=== PATIENT | male | born 1985 | race Caucasian/White ===

== ENCOUNTER 2021-04-16 16:16 | Inpatient (IN) | payer OTHER ==
[~2021-04-16] VITALS: Ht 177.8 cm; Wt 134.7 kg
[~2021-04-16 16:16] MED LIST: CLEOCIN HCL300 MG PO; IBUPROFEN 800800 M1 PO; NAPROSYN500 MG PO; NOHOMEMEDICATIONS; NORCO 5-325 TA1 EACH PO
[2021-04-16 16:17] VITALS: BP 130/88
[2021-04-16 16:43] LABS: BE(vivo) -0.5 mmol/L (-2 to +3); HCO3 21.9 mmol/L (22.0-26.0); PCO2 30.8 mmHg (35.0-45.0); PO2 78.4 mmHg (80.0-100.0); sO2 96.4 % (92.0-98.0)
[2021-04-16 17:00] LABS: ABSOLUTE NEUTROPHILS 3.4 thou/uL (1.4-8.2); BASOPHILS 0.3 % (0.0-2.0); HEMATOCRIT 45.7 % (42.0-52.0); HEMOGLOBIN 15.7 gm/dL (14.0-18.0); LYMPHOCYTES 21.1 % (24.0-44.0); MCH 29.9 pg (26.0-34.0); MCHC 34.3 g/dL (28.0-37.0); MCV 87.3 fL (80.0-100.0); MONOCYTES 8.3 % (1.0-8.0); PLATELET COUNT 169 thou/uL (150-400); POLYS 70.3 % (36.0-66.0); RBC 5.23 mil/uL (4.50-6.00); RDW 12.5 % (10.5-14.5); WBC 4.9 thou/uL (4.0-11.0)
[2021-04-16 17:10] LABS: CALCIUM 8.4 mg/dL (8.5-10.1); CREATININE 1.3 mg/dL (0.7-1.3); POTASSIUM 3.2 mmol/L (3.5-5.1)
[2021-04-16 17:16] LABS: ALBUMIN 3.1 g/dL (3.4-5.0); TOTAL BILIRUBIN 0.4 mg/dL (0.2-1.0); TOTAL PROTEIN 7.5 g/dL (6.4-8.2)
[2021-04-17 02:55] LABS: HEMOGLOBIN 14.7 gm/dL (14.0-18.0); MCH 29.9 pg (26.0-34.0); MCHC 33.4 g/dL (28.0-37.0); MCV 89.4 fL (80.0-100.0); RBC 4.92 mil/uL (4.50-6.00); RDW 12.5 % (10.5-14.5); WBC 4.3 thou/uL (4.0-11.0)
[2021-04-17 03:50] LABS: ALBUMIN 2.7 g/dL (3.4-5.0); ANION GAP 14 mmol/L (7-16); BUN 14 mg/dL (7-18); CALCIUM 8.1 mg/dL (8.5-10.1); CHLORIDE 97 mmol/L (98-107); CO2 23 mmol/L (21-32); CREATININE 1.5 mg/dL (0.7-1.3); DIRECT BILIRUBIN < 0.1 mg/dL (<0.1-0.2); GLUCOSE 412 mg/dL (74-106); PHOSPHORUS 3.4 mg/dL (2.5-4.9); POTASSIUM 4.1 mmol/L (3.5-5.1); SGOT 21 U/L (15-37); SGPT 38 U/L (30-65); SODIUM 134 mmol/L (136-145); TOTAL BILIRUBIN 0.3 mg/dL (0.2-1.0)
[2021-04-17 12:52] VITALS: BP 129/74
[2021-04-17 17:03] VITALS: BP 143/93
[2021-04-17 17:31] VITALS: BP 155/93
[2021-04-17 18:05] VITALS: BP 132/78
[2021-04-17 19:25] LABS: CHOLESTEROL 155 mg/dL (<200); HDL CHOLESTEROL 25 mg/dL (>40); LDL CHOLESTEROL 105 mg/dL (<100); SERUM ASSESSMENT Clear; TC:HDL 6.2 Ratio (Not establshd); TRIGLYCERIDE 129 mg/dL (<150); VLDL 26 mg/dL (<40)
[2021-04-17 19:45] VITALS: BP 152/93
[2021-04-17 23:21] VITALS: BP 132/76
[2021-04-18 03:06] LABS: GLYCOHEMOGLOBIN (HGB A1C) 11.4 % (4.8-5.6)
[2021-04-18 04:04] VITALS: BP 133/89
[2021-04-18 06:31] LABS: ABSOLUTE NEUTROPHILS 5.3 thou/uL (1.4-8.2); BASOPHILS 0.1 % (0.0-2.0); HEMATOCRIT 45.8 % (42.0-52.0); HEMOGLOBIN 15.2 gm/dL (14.0-18.0); LYMPHOCYTES 12.8 % (24.0-44.0); MCH 29.5 pg (26.0-34.0); MCHC 33.3 g/dL (28.0-37.0); MCV 88.7 fL (80.0-100.0); MONOCYTES 7.2 % (1.0-8.0); PLATELET COUNT 237 thou/uL (150-400); POLYS 79.9 % (36.0-66.0); RBC 5.16 mil/uL (4.50-6.00); RDW 12.4 % (10.5-14.5); WBC 6.6 thou/uL (4.0-11.0)
[2021-04-18 06:36] LABS: ALBUMIN 2.8 g/dL (3.4-5.0); ANION GAP 8 mmol/L (7-16); BUN 20 mg/dL (7-18); CALCIUM 8.7 mg/dL (8.5-10.1); CHLORIDE 99 mmol/L (98-107); CO2 28 mmol/L (21-32); CREATININE 1.2 mg/dL (0.7-1.3); DIRECT BILIRUBIN < 0.1 mg/dL (<0.1-0.2); GLUCOSE 261 mg/dL (74-106); INR 1.03; PHOSPHORUS 3.4 mg/dL (2.5-4.9); POTASSIUM 3.9 mmol/L (3.5-5.1); PROTIME 11.2 Seconds (10.5-12.1); SGOT 15 U/L (15-37); SGPT 31 U/L (30-65); SODIUM 135 mmol/L (136-145); TOTAL BILIRUBIN 0.3 mg/dL (0.2-1.0); TOTAL PROTEIN 7.2 g/dL (6.4-8.2)
--- NOTE | 2021-04-18 07:04 | NUR ---
Patient working towards outcome goals. Needs 10L hi brii to maintain oxygen sat mid 90's. Desats to mid to upper 90's with any activity. Up adlib to bathroom without difficulty. Blood sugars high, sliding scale increased to moderate dose. Denies pain. Vital signs stable.
[2021-04-18 07:28] VITALS: BP 129/70
--- NOTE | 2021-04-18 10:10 | NUR ---
Pt admitted d/t increasing SOA, sputum production following positive covid test last week. New dx DM noted with BS range 276-347 since admit. 90% dinner intake last noc. Extreme class III obesity with BMI 45.2. Unable to get pt on phone. Will need DM education when medically stable, prior to d/c. Low nutrition risk at this time.
[2021-04-18 11:35] VITALS: BP 134/72
--- NOTE | 2021-04-18 14:42 | NUR ---
PT ADMITTED RELATED TO ACUTE RESPIRATORY FAILURE R/T COVID-19. CM REVIEWED CHART AND SPOKE WITH CARE TEAM. CM SPOKE TO PT AND PTS VIA PHONE THIS DAY. CM ROLE INTRODUCED. PT REPORTS HE WAS RECEIVING A BREATHING TREATMENT AT THE TIME OF MY CALL AND ASK ME TO CALL HIS . REPORTS PT RESIDE AT HOME WITH SPOUSE AND 1 CHILD. 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 GOAL IS TO RETURN HOME ONCE MEDICALLY STABLE. NO CONCERNS WITH NEEDS VOICED ONCE DISCHARGE AT THIS TIME. UNSURE IF PT WILL NEED OXYGEN ON DISCHARGE. WILL FOLLOW THROUGH STAY AND ARRANGE IF INDICATED. CM FOLLOWING REGARDING DC PLANNING.
[2021-04-18 16:39] VITALS: BP 128/73
[2021-04-18 19:13] VITALS: BP 127/66
--- NOTE | 2021-04-18 19:34 | NUR ---
RN ASSUMED PT'S CARE AT 0700-1900PM, PT IS A&OX4, PT IS ON OPTIFLOW O2 60-70%, 30-40L/MIN , PT'S O2SAT SATY AT 92-94%, BUT PT HAS SOB WITH ACTIVITIES, PT IS CONTINUING IV ABX AND TREAT COVID MEDICATIONS, PT DENIES PAIN AT DAY SHIFT.
--- NOTE | 2021-04-18 23:17 | HC ---
[facility] [place] [address] CONSULTATION Name: CURT HANSEN Room #: 352-P [facility] IN M.R.#: [id number] Admission: 04/16/21 Attend Phys: Ena Gutierres MD Discharge: Date of : 85 Report #: [id number] THIS REPORT FOR: cc: Jean Anne MD ~ DATE OF SERVICE: 04/17/2021 INFECTIOUS DISEASE CONSULTATION REASON FOR CONSULTATION: I was asked to evaluate concerning COVID-19 pneumonia. HISTORY OF PRESENT ILLNESS: The patient is a 35-year-old otherwise healthy individual who is obese, unvaccinated for COVID-19, presents with 6-day history of cough, low-grade fever, progressive shortness of breath, intermittent sputum production without hemoptysis or chest pain. COVID-19 testing was positive 6 days ago. Progressive shortness of breath occurred over the last 3 days. He presented to the Emergency Room, now on 10 liters of oxygen per nasal cannula. No prior history of pneumonia or tuberculosis or HIV risk factors. He works as a cert pharmacy tech. Denies any headache, anosmia, nausea, vomiting or diarrhea. His weight has been approximately 340 pounds. ALLERGIES: AUGMENTIN WITH GI UPSET. SULFA. MEDICATIONS: As noted on his MAR, having been started on dexamethasone, remdesivir, azithromycin and ceftriaxone. FAMILY HISTORY: Negative for tuberculosis. SOCIAL HISTORY: Nonsmoker, no significant alcohol intake. No HIV risk factors. PAST MEDICAL HISTORY: Premature at , jaw surgery. REVIEW OF SYSTEMS: A 14-point review of system was negative other than what has been described above. PHYSICAL EXAMINATION: GENERAL: He is afebrile and hemodynamically stable. He is alert and cooperative and pleasant, on 10 liters of oxygen per nasal cannula. He had intermittent nonproductive cough. Morbidly obese. SKIN: Without rash or decubitus. No palpable adenopathy. EYES: Without scleral icterus. Mouth without mucositis. NECK: Supple. LUNGS: Few crackles in the bases bilaterally. No consolidation. HEART: Regular, without murmur, gallop or rub. ABDOMEN: Soft and nontender with no hepatosplenomegaly or mass. [facility] [address] [place] [address] CONSULTATION Name: CURT HANSEN Room #: 352-P ADM IN .R.#: [id number] Admission: 04/16/21 Attend Phys: Ena Gutierres MD Discharge: Date of : 85 Report #: [id number] GENITORECTAL: Not performed. SPINE: Nontender. EXTREMITIES: Without clubbing, cyanosis or edema. NEUROLOGIC: Cranial nerves intact. Strength in the upper and lower extremities was within normal limits. MOOD: Without anxiety or depression. LABORATORY STUDIES: Reviewed. MICROBIOLOGY: Reviewed. IMAGING: Chest x-ray reviewed. IMPRESSION: A 35-year-old with COVID-19 pneumonia, bilateral pulmonary infiltrates, SARS and respiratory failure. Acute kidney injury, newly diagnosed diabetes, hyponatremia and obesity. RECOMMENDATION: Continue antiviral anti-inflammatory therapy. Discussed use of IL-6 inhibitor or possibly Janus kinase inhibitor. The patient was in agreement with plan of care. We will continue with fluid replacement. Monitor renal function closely. The patient will remain on the [facility] isolation unit for cardiopulmonary monitoring. Pulmonary Medicine consultation has been obtained to assist with his oxygenation. <ELECTRONICALLY SIGNED> By: Jean Anne MD 04/18/21 2317 [id number] Jean Anne MD /nt
[2021-04-19 02:06] LABS: HIV ANTIBODY Non Reactive (Non Reactive)
[2021-04-19 03:27] VITALS: BP 122/73
--- NOTE | 2021-04-19 06:27 | NUR ---
Patient is not progressing towards outcome goals. SOB with any activity. Oxygen requirement increased to 44L/86% pr optiflow to maintain sats between 92-96%. Attempted but patient unable to tolerate prone position. Vital signs and rhythm stable.
[2021-04-19 06:55] LABS: ALBUMIN 2.8 g/dL (3.4-5.0); CALCIUM 8.6 mg/dL (8.5-10.1); CREATININE 1.2 mg/dL (0.7-1.3); DIRECT BILIRUBIN 0.1 mg/dL (<0.1-0.2); POTASSIUM 3.6 mmol/L (3.5-5.1); TOTAL BILIRUBIN 0.3 mg/dL (0.2-1.0); TOTAL PROTEIN 6.9 g/dL (6.4-8.2)
[2021-04-19 07:27] VITALS: BP 120/77
[2021-04-19 11:12] VITALS: BP 117/59
--- NOTE | 2021-04-19 11:56 | NUR ---
Case discussed with the care team. No weekend dc anticipated. Pt with increasing o2 needs/optiflow/bipap. Dc planning needs are uncertain at this time. Nursing updating his . Will follow.
[2021-04-19 15:25] VITALS: BP 126/59
--- NOTE | 2021-04-19 19:32 | NUR ---
RN ASSUMED PT'S CARE AT 0700-1900PM, PT IS A&OX4, PT IS ON OPTIFLOW O2 70-80%, 30-40L/MIN/NC AT MOST OF TIME, PT'S O2SAT STAY AT 92-96%, PT STILL HAS SOB WITH ACTIVITIES, PT IS CONTINUING IV ABX AND TREAT COVID MEDICATIONS, PT DENIES PAIN AT DAY SHIFT.
[2021-04-19 20:56] VITALS: BP 143/90
[2021-04-20 04:03] VITALS: BP 123/75
[2021-04-20 05:06] LABS: ABSOLUTE NEUTROPHILS 6.5 thou/uL (1.4-8.2); BASOPHILS 0.2 % (0.0-2.0); HEMATOCRIT 43.9 % (42.0-52.0); HEMOGLOBIN 14.6 gm/dL (14.0-18.0); LYMPHOCYTES 15.2 % (24.0-44.0); MCH 29.4 pg (26.0-34.0); MCHC 33.3 g/dL (28.0-37.0); MCV 88.5 fL (80.0-100.0); MONOCYTES 6.8 % (1.0-8.0); POLYS 77.8 % (36.0-66.0); RBC 4.96 mil/uL (4.50-6.00); RDW 12.6 % (10.5-14.5); WBC 8.4 thou/uL (4.0-11.0)
[2021-04-20 05:09] LABS: PLATELET COUNT 321 thou/uL (150-400)
[2021-04-20 05:15] LABS: ALBUMIN 2.8 g/dL (3.4-5.0); ANION GAP 11 mmol/L (7-16); BUN 25 mg/dL (7-18); CALCIUM 8.6 mg/dL (8.5-10.1); CHLORIDE 99 mmol/L (98-107); CO2 28 mmol/L (21-32); CREATININE 1.2 mg/dL (0.7-1.3); DIRECT BILIRUBIN < 0.1 mg/dL (<0.1-0.2); GLUCOSE 239 mg/dL (74-106); PHOSPHORUS 3.9 mg/dL (2.6-4.7); POTASSIUM 3.3 mmol/L (3.5-5.1); SGOT 17 U/L (15-37); SGPT 35 U/L (16-63); SODIUM 138 mmol/L (136-145); TOTAL BILIRUBIN 0.3 mg/dL (0.2-1.0); TOTAL PROTEIN 6.7 g/dL (6.4-8.2)
--- NOTE | 2021-04-20 05:44 | NUR ---
PT IS SLOWLY PROGRESSING TOWARD GOAL OF DISCHARGE HOME. PT IS A&OX4 AND ABLE TO COMMUNICATE WANTS AND NEEDS TO STAFF. PT INDEPENDENT WITH TRANSFERS, CURRENTLY UTILIZING BSC AND URINAL FOR ELIMINATION NEEDS. PT IS STILL REQUIRING SIGNIFICANT OXYGEN SUPPORT. STARTED SHIFT ON OPTIFLOW 50L/75%, WITH O2 SATS RANGING FROM 93-97%. SWITCHED TO BIPAP 60% AT HS, MAINTAINED O2 SAT 93-95%. TITRATED DOWN TO 50%; PT DESATURATED TO 83-86%. INCREASED FIO2 BACK TO 70% AND PT RECOVERED TO 94-96% AND WAS ABLE TO TITRATE BACK TO 60%. HAS BEEN STABLE WITH O2 SATS 93-96% WHILE ON BIPAP 60%. DENIES PAIN, DOES HAVE PERSISTENT NONPRODUCTIVE COUGH. WILL CONTINUE TO OBSERVE FOR CHANGES
[2021-04-20 07:11] VITALS: BP 110/62
[2021-04-20 11:20] VITALS: BP 122/63
[2021-04-20 15:16] VITALS: BP 124/62
--- NOTE | 2021-04-20 16:15 | NUR ---
RN ASSUMED PT'S CARE AT 0700AM, PT IS A&OX4, PT IS ON OPTIFLOW O2 70-75%, 45-50L/MIN, PT'S O2SAT STAY AT 91-95%, PT STILL HAS SOB WITH ACTIVITIES, PT IS CONTINUING IV ABX AND TREAT COVID MEDICATIONS, PT DENIES PAIN BY THIS TIME, PT'S VS ARE STABLE BY THIS TIME.
[2021-04-20 19:45] VITALS: BP 138/63
[2021-04-21 04:20] VITALS: BP 119/62
--- NOTE | 2021-04-21 04:24 | NUR ---
PT IS A&OX4 AND ABLE TO COMMUNICATE ALL WANTS AND NEEDS TO STAFF. PT STABLE ON OPTIFLOW 50L/75% WITH O2 SATS >94%. BIPAP WORN AT HS. PT INITIALLY ON 60% BIPAP, BUT HE FELL INTO A DEEPER SLEEP, DESATURATED TO 85-87%. FIO2 TITRATED UP TO 80%, RT AWARE. CURRENTLY MAINTAINING O2 SAT 90-94% ON 80%/BIPAP. DESATURATES QUICKLY WITH EXERTION, EATING, OR DRINKING. WILL CONTINUE TO OBSERVE FOR CHANGES
[2021-04-21 05:34] LABS: ALBUMIN 2.7 g/dL (3.4-5.0); ANION GAP 8 mmol/L (7-16); BUN 27 mg/dL (7-18); CALCIUM 8.7 mg/dL (8.5-10.1); CHLORIDE 100 mmol/L (98-107); CO2 31 mmol/L (21-32); CREATININE 1.3 mg/dL (0.7-1.3); DIRECT BILIRUBIN < 0.1 mg/dL (<0.1-0.2); GLUCOSE 202 mg/dL (74-106); PHOSPHORUS 4.2 mg/dL (2.5-4.9); POTASSIUM 3.7 mmol/L (3.5-5.1); SGOT 21 U/L (15-37); SGPT 37 U/L (30-65); SODIUM 139 mmol/L (136-145); TOTAL BILIRUBIN 0.3 mg/dL (0.2-1.0); TOTAL PROTEIN 6.4 g/dL (6.4-8.2)
[2021-04-21 08:08] VITALS: BP 127/58
[2021-04-21 11:07] VITALS: BP 125/69
[2021-04-21 15:03] VITALS: BP 142/69
--- NOTE | 2021-04-21 15:22 | NUR ---
RN ASSUMED PT'S CARE AT 0700AM, PT IS A&OX4 PT IS ON OPFTIFLOW 02 90-100%, 60L/MIN/ , PT'S O2SAT STAY AT 92-96%, BUT PT STILL HAS SOB WITH ACTIVIEDC,PT'S VS ARE STABLE, PT IS CONTINUING IV ABX AND TREAT COVID [id number]. PT DENIES PAIN AT THIS TIME.
[2021-04-21 20:14] VITALS: BP 114/59
[2021-04-22] VITALS (12 sets, daily range): BP systolic 102–138; BP diastolic 33–74
[2021-04-22 02:41] LABS: BE(vivo) 2.3 mmol/L (-2 to +3); HCO3 24.6 mmol/L (22.0-26.0); PCO2 32.4 mmHg (35.0-45.0); pH 7.499 (7.360-7.450); sO2 89.1 % (92.0-98.0)
[2021-04-22 02:46] LABS: PO2 50.4 mmHg (80.0-100.0)
[2021-04-22 04:52] LABS: ALBUMIN 2.9 g/dL (3.4-5.0); CREATININE 1.1 mg/dL (0.7-1.3); POTASSIUM 3.3 mmol/L (3.5-5.1); TOTAL BILIRUBIN 0.4 mg/dL (0.2-1.0); TOTAL PROTEIN 6.6 g/dL (6.4-8.2)
--- NOTE | 2021-04-22 05:08 | NUR ---
ASSUMED PT CARE AT 1900 AND PT WAS ON OPTIFLOW 60L 100% FIO2. PT O2 NEEDS INCREASED, RT WAS NOTIFIED AND PT WAS PUT ON BIPAP 100% FIO2. NOTIFIED MECHANICAL ADJUSTER AND OF INCREASED O2 NEEDS. STAT ABG WAS ORDERED AND RECEIVED CRITICAL LAB PO2-50.4. NOTIFIED AND RECEIVED ORDERS TO TRANSFER PT TO ICU. PT WAS TRANSFERED WITH ALL HIS BELONGINGS. NOTIFIED AND UPDATED FAMILY.
[2021-04-22 05:18] LABS: ABSOLUTE NEUTROPHILS 9.4 thou/uL (1.4-8.2); BASOPHILS 0.1 % (0.0-2.0); EOSINOPHILS 0.8 % (0.0-3.0); HEMATOCRIT 46.6 % (42.0-52.0); HEMOGLOBIN 15.4 gm/dL (14.0-18.0); LYMPHOCYTES 15.4 % (24.0-44.0); MCH 29.5 pg (26.0-34.0); MCHC 33.1 g/dL (28.0-37.0); MONOCYTES 4.5 % (1.0-8.0); PLATELET COUNT 378 thou/uL (150-400); POLYS 79.2 % (36.0-66.0); RBC 5.24 mil/uL (4.50-6.00); RDW 12.4 % (10.5-14.5); WBC 11.9 thou/uL (4.0-11.0)
--- NOTE | 2021-04-22 14:39 | NUR ---
RN ASKED PT IF HE WANTED TO BE INTUBATED IF IT CAME TO THAT POINT. PT SAID HE WOULD "PREFER NOT TO BE BUT IF I HAVE TO BE I GUESS THATS FINE". PT HAS BEEN SATTING 95-98%. PT BP WAS ELEVATED, 190S/110S. RN CHANGED BP CUFF, AND BP RETURNED TO WHAT IT WAS AT START OF SHIFT. RN NOTIFIED DR MARTÍNEZ ABOUT ELEVATED BP. PUT IN AN ORDER TO START PRECEDEX. SINCE PT BLOOD PRESSURE IS BACK TO A NORMAL LEVEL, RN DID NOT START PRECEDEX. RN WILL CONTINUE TO MONITOR AND FOLLOW POC.
--- NOTE | 2021-04-22 16:21 | NUR ---
Pt was transfered from . Pt now on BiPaP at 100%. Pt on IV Ceftriaxone, Valtrex, Dexamethasone, Remdesivir day 7. Cm following.
[2021-04-23] VITALS (24 sets, daily range): BP systolic 84–148; BP diastolic 42–104
[2021-04-23 05:16] LABS: ALBUMIN 2.8 g/dL (3.4-5.0); CALCIUM 8.5 mg/dL (8.5-10.1); CREATININE 1.1 mg/dL (0.7-1.3); TOTAL BILIRUBIN 0.4 mg/dL (0.2-1.0); TOTAL PROTEIN 6.2 g/dL (6.4-8.2)
[2021-04-23 05:22] LABS: HEMATOCRIT 46.9 % (42.0-52.0); HEMOGLOBIN 15.6 gm/dL (14.0-18.0); MCH 29.5 pg (26.0-34.0); MCHC 33.3 g/dL (28.0-37.0); MCV 88.7 fL (80.0-100.0); PLATELET COUNT 343 thou/uL (150-400); RBC 5.29 mil/uL (4.50-6.00); RDW 12.6 % (10.5-14.5); WBC 10.9 thou/uL (4.0-11.0)
[2021-04-23 08:19] LABS: T-SPOT.TB Negative
[2021-04-23 11:43] LABS: ABSOLUTE NEUTROPHILS 9.2 thou/uL (1.4-8.2); METAMYELOCYTES 1 %; PLATELET ESTIMATE NORMAL
[2021-04-24] VITALS (20 sets, daily range): BP systolic 105–164; BP diastolic 49–95
--- NOTE | 2021-04-24 05:43 | NUR ---
ASSESSMENTS CHARTED, MEDS CHARTED GIVEN. PATIENT IN PRONE POSITION AT START OF SHIFT. ATE DINNER THAN CONTINUED PRONE POSITION UNTIL 2229. PATIENT ABLE TO TURN HIMSELF IN THE BED. PATIENT ON OPTIFLO UNTIL BEDTIME WHEN HE WAS PLACED ON BIPAP. PATIENT'S IS ASKING THAT SERVICE ESTABLISHMENT ATTENDANT CALL HER DURING THE DAY FOR AN UPDATE OF HUSBANDS CONDITION. PLAN OF CARE TO CONTINUE TREATMENTS.
[2021-04-24 09:48] LABS: CALCIUM 8.5 mg/dL (8.5-10.1); CREATININE 1.2 mg/dL (0.7-1.3); DIRECT BILIRUBIN 0.1 mg/dL (<0.1-0.2); PHOSPHORUS 4.6 mg/dL (2.6-4.7); POTASSIUM 3.3 mmol/L (3.5-5.1); TOTAL BILIRUBIN 0.5 mg/dL (0.2-1.0)
[2021-04-24 09:49] LABS: ALBUMIN 2.8 g/dL (3.4-5.0); TOTAL PROTEIN 6.2 g/dL (6.4-8.2)
--- NOTE | 2021-04-24 16:53 | NUR ---
Cm reviewed chart and spoke with care team. Pt's care discussed in ICU rounds this day. Pt is Currently on HFNC 75%, 50LPM vs BIPAP 12/8, FIO2 100%. Pt and Ot were ordered. Cm following.
[2021-04-25] VITALS (21 sets, daily range): BP systolic 95–135; BP diastolic 36–87
[2021-04-25 04:03] LABS: ALBUMIN 2.7 g/dL (3.4-5.0); ANION GAP 8 mmol/L (7-16); BUN 24 mg/dL (7-18); CALCIUM 8.4 mg/dL (8.5-10.1); CHLORIDE 101 mmol/L (98-107); CO2 26 mmol/L (21-32); CREATININE 1.1 mg/dL (0.7-1.3); DIRECT BILIRUBIN < 0.1 mg/dL (<0.1-0.2); GLUCOSE 185 mg/dL (74-106); SGOT 23 U/L (15-37); SGPT 82 U/L (30-65); SODIUM 135 mmol/L (136-145); TOTAL BILIRUBIN 0.3 mg/dL (0.2-1.0); TOTAL PROTEIN 5.7 g/dL (6.4-8.2)
--- NOTE | 2021-04-25 09:27 | NUR ---
Nutrition followup: Acute respiratory failure with transfer to ICU, need for BIPAP. Now on Optiflow. Has been eating 60-100% of meals past several days on Carb controlled diet. Newly dx DM. A1C 11.4. BG 109-319. Meds include lasix, vitamin pack, KCl, insulin, steroid. 1+ generalized edema. BMI 45, extreme class 3 obesity. Last BM documented 04/20. Has PRN miralax ordered, may need to change to daily. Will need DM/weight loss education when appropriate. Keep low nutrition risk.
--- NOTE | 2021-04-25 16:42 | NUR ---
CM REVIEWED CHART AND SPOKE WITH NURSE THIS DAY. PT IS OPTIFLOW AT THIS TIME. PT WORKED WITH PT AND OT THIS DAY. CM FOLLOWING.
[2021-04-26] VITALS (21 sets, daily range): BP systolic 110–138; BP diastolic 42–90
[2021-04-26 04:09] LABS: ABSOLUTE NEUTROPHILS 8.9 thou/uL (1.4-8.2); BASOPHILS 0.5 % (0.0-2.0); EOSINOPHILS 1.5 % (0.0-3.0); HEMATOCRIT 44.7 % (42.0-52.0); LYMPHOCYTES 12.4 % (24.0-44.0); MCH 29.7 pg (26.0-34.0); MCHC 33.5 g/dL (28.0-37.0); MCV 88.6 fL (80.0-100.0); MONOCYTES 6.8 % (1.0-8.0); PLATELET COUNT 280 thou/uL (150-400); POLYS 78.8 % (36.0-66.0); RBC 5.05 mil/uL (4.50-6.00); RDW 12.5 % (10.5-14.5); WBC 11.3 thou/uL (4.0-11.0)
[2021-04-26 04:16] LABS: ALBUMIN 2.7 g/dL (3.4-5.0); ANION GAP 10 mmol/L (7-16); BUN 24 mg/dL (7-18); CALCIUM 8.6 mg/dL (8.5-10.1); CHLORIDE 103 mmol/L (98-107); CO2 24 mmol/L (21-32); CREATININE 0.9 mg/dL (0.7-1.3); DIRECT BILIRUBIN < 0.1 mg/dL (<0.1-0.2); GLUCOSE 203 mg/dL (74-106); PHOSPHORUS 3.9 mg/dL (2.5-4.9); POTASSIUM 4.4 mmol/L (3.5-5.1); SGOT 20 U/L (15-37); SGPT 69 U/L (30-65); SODIUM 137 mmol/L (136-145); TOTAL BILIRUBIN 0.2 mg/dL (0.2-1.0); TOTAL PROTEIN 5.5 g/dL (6.4-8.2)
--- NOTE | 2021-04-26 10:07 | NUR ---
VERBAL ORDER FROM DR. MARTÍNEZ TO PLACE DOBHOFF AND INITATE TF PER PAPETERIE TABLE ASSEMBLER RECOMMENDATIONS. PT UPDATED ON POC.
--- NOTE | 2021-04-26 11:10 | NUR ---
PT ALERT AND ORIENTED TIMES FOUR. VSS. 40% OPTIFLOW AT THIS TIME. PT DENIES PAIN. PT TOLERATES MEDS AND MEALS. PT WORKED WELL WITH PHYSICAL THEARPY TODAY. WILL CONTINUE TO MONITOR.
--- NOTE | 2021-04-26 14:47 | NUR ---
Case discussed with the care team. No weekend dc anticipated. Pt is progressing. Pt now on high flow 02 at 50%/45L. Pt working with PT and OT. Nursing updating his . Will follow related to dc needs.
[2021-04-27] VITALS (24 sets, daily range): BP systolic 104–160; BP diastolic 63–107
[2021-04-27 04:07] LABS: HEMATOCRIT 45.8 % (42.0-52.0); HEMOGLOBIN 15.3 gm/dL (14.0-18.0); MCH 29.8 pg (26.0-34.0); MCHC 33.4 g/dL (28.0-37.0); MCV 89.1 fL (80.0-100.0); PLATELET COUNT 277 thou/uL (150-400); RBC 5.14 mil/uL (4.50-6.00); RDW 12.7 % (10.5-14.5); WBC 15.1 thou/uL (4.0-11.0)
[2021-04-27 04:14] LABS: ALBUMIN 2.9 g/dL (3.4-5.0); ANION GAP 8 mmol/L (7-16); BUN 23 mg/dL (7-18); CALCIUM 8.8 mg/dL (8.5-10.1); CHLORIDE 103 mmol/L (98-107); CO2 28 mmol/L (21-32); CREATININE 1.1 mg/dL (0.7-1.3); DIRECT BILIRUBIN < 0.1 mg/dL (<0.1-0.2); GLUCOSE 163 mg/dL (74-106); PHOSPHORUS 4.2 mg/dL (2.6-4.7); POTASSIUM 4.3 mmol/L (3.5-5.1); SGOT 19 U/L (15-37); SGPT 82 U/L (16-63); SODIUM 139 mmol/L (136-145); TOTAL BILIRUBIN 0.2 mg/dL (0.2-1.0); TOTAL PROTEIN 6.2 g/dL (6.4-8.2)
[2021-04-27 06:39] LABS: ABSOLUTE NEUTROPHILS 12.5 thou/uL (1.4-8.2); ATYPICAL LYMPHS 2 %
--- NOTE | 2021-04-27 13:19 | NUR ---
PT RESTING COMFORTABLY, HE IS ABLE TO SIT IN BEDSIDE RECLINER WITH MODERATE ASSISTANCE WITH LINES AND TUBES. PT HAD A VERY LARGE BM THIS AFTERNOON AFTER BEING GIVEN A STOOL SOFTNER. PT STILL BECOMES SOA WHEN DOING BASIC DAILY ACTIVITES HOWEVER, RECOVERS QUICKLY. WILL CONTINUE TO FOLLOW POC.
[2021-04-28] VITALS (21 sets, daily range): BP systolic 102–135; BP diastolic 59–85
[2021-04-28 05:21] LABS: ALBUMIN 2.9 g/dL (3.4-5.0); ANION GAP 8 mmol/L (7-16); BUN 25 mg/dL (7-18); CALCIUM 8.8 mg/dL (8.5-10.1); CHLORIDE 101 mmol/L (98-107); CO2 29 mmol/L (21-32); CREATININE 1.1 mg/dL (0.7-1.3); DIRECT BILIRUBIN < 0.1 mg/dL (<0.1-0.2); GLUCOSE 66 mg/dL (74-106); POTASSIUM 3.6 mmol/L (3.5-5.1); SGOT 22 U/L (15-37); SGPT 83 U/L (30-65); SODIUM 138 mmol/L (136-145); TOTAL BILIRUBIN 0.3 mg/dL (0.2-1.0); TOTAL PROTEIN 6.3 g/dL (6.4-8.2)
--- NOTE | 2021-04-28 22:26 | NUR ---
TRANSFER ORDER FOR PATIENT WAS PLACED ON DAY SHIFT. REPORT WAS CALLED TO [place] ON 3W. NURSE AND RT TRANSPORTED PATIENT VIA WHEELCHAIR TO 3W. PATIENT WAS IN NO ACUTE DISTRESS. ALL BELONGINGS TAKEN WITH PATIENT.
[2021-04-29 04:00] VITALS: BP 123/79
--- NOTE | 2021-04-29 05:56 | NUR ---
PT WAS AN ICU TRANSFER PREVIOUSLY ON 3W. PT WAS TAKEN OFF OPTIFLOW AFTER ARRIVAL. 02 SATURATION IS 98% ON 12L. A/0X4 AND VERY HAPPY TO BE BACK ON 3W. UP WITH SBA TO BSC AND VOIDS EITHER VIA URINAL OR BSC. VSS AND CALL LIGHT WITHIN REACH.
[2021-04-29 06:08] LABS: HEMATOCRIT 47.7 % (42.0-52.0); HEMOGLOBIN 15.6 gm/dL (14.0-18.0); MCH 29.7 pg (26.0-34.0); MCHC 32.7 g/dL (28.0-37.0); MCV 90.6 fL (80.0-100.0); RBC 5.26 mil/uL (4.50-6.00); RDW 12.7 % (10.5-14.5); WBC 15.9 thou/uL (4.0-11.0)
[2021-04-29 07:32] VITALS: BP 106/61
[2021-04-29 09:16] LABS: BE(vivo) 0 mmol/L (-2 to +3); HCO3 23.6 mmol/L (22.0-26.0); PCO2 35.9 mmHg (35.0-45.0); PO2 69.6 mmHg (80.0-100.0); pH 7.436 (7.360-7.450); sO2 94.6 % (92.0-98.0)
[2021-04-29 11:10] VITALS: BP 112/63
--- NOTE | 2021-04-29 14:41 | NUR ---
TRINITY reviewed chart and spoke with nursing and attending physician. Pt was transferred to from ICU. Remains in Enhanced Isolation due to COVID. Pt is afebrile and on 11-12L of O2. Pt is on IV steroids. TRINITY spoke with pt via phone. Introduced role of SW. Pt is alert/orientated x 4. Pt asked about his insurance that [facility] has on file. Pt states he has [employer] insurance through his employer. Insurance through [employer] was on file. Pt states he has not worked at [employer] for a few years. TRINITY notified UR. Pt's chart had already been updated by registration. Plan is for pt to discharge home when medically stable. Pt is aware that he may need HH and/or home O2 upon discharge. Pt's PCP is Dr. Carl Hurst. Pt was independent with ADLs prior to admission. TRINITY is following to assist as needed with discharge planning.
[2021-04-29 15:04] VITALS: BP 127/71
[2021-04-29 20:00] VITALS: BP 107/68
--- NOTE | 2021-04-30 02:56 | NUR ---
PROGRESS PT A/O X4. DENIES PAIN. LUNGS CLEAR BUT DIMINISHED ON 12 LITERS O2 VIA NC. SATS IN MID 90'S. ACCUCHECKS AND SSI CONTINUE. PT VOIDING QS. HAD A BM THIS EVENING. SAT IN CHAIR ALL DAY AND WENT TO BED AT 1 AM. VSS CONTINUE POC.
[2021-04-30 03:38] VITALS: BP 117/91
[2021-04-30 07:21] VITALS: BP 119/79
[2021-04-30 11:18] VITALS: BP 108/63
--- NOTE | 2021-04-30 13:18 | NUR ---
TRINITY reviewed chart and spoke with nursing and attending physician. Pt remains in Enhanced Isolation due to COVID. Pt is afebrile and on 5L of O2. Pt may be ready for discharge home later today. Rest/exercise oximetry to be ordered to assess pt's home O2 needs. TRINITY confirmed with that pt's insurance had been verified. TRINITY spoke with pt via phone to discuss discharge plan. Pt states he does not feel that he needs HH services. Pt is aware that he will most likely need home O2. TRINITY confirmed home address and phone number. No preference voiced of a home O2 provider. TRINITY received voice message from [place] at [facility] who provided contact info for [employer] ( ) to assist with discharge planning. TRINITY placed call to [employer] and spoke with Maria Del Carmen Medina-Shop Mechanic Helper. Info provided. TRINITY faxed clinical info for review. Case # [id number] provided. [facility] states that [facility] is in-network. TRINITY faxed info to [facility] and notified [facility] liaison. Awaiting rest/exercise oximetry results. Will need script for O2. Pt's family will be able to provide transportation home. TRINITY is following to finalize discharge plan.
[2021-04-30] MEDS ORDERED: ZINC SULFATE50 MG PO (13:36)
[2021-04-30] MEDS ORDERED: ACETAMINOPHEN325 M1 PO (13:36)
[2021-04-30] MEDS ORDERED: VITAMIN D325 MC2 PO (13:36)
[2021-04-30] MEDS ORDERED: AMBIEN 5 MG TABL5 M1 PO (13:36)
[2021-04-30] MEDS ORDERED: VALTREX 500 MG500 MG PO (13:36)
[2021-04-30] MEDS ORDERED: MIRALAX17 GM PO (13:36)
[2021-04-30] MEDS ORDERED: FREESTYLE SYST1 EACH SUBQ (13:36)
[2021-04-30] MEDS ORDERED: HUMULIN N100 UNIT/1 SUBQ (13:36)
[2021-04-30] MEDS ORDERED: METFORMIN HCL500 M1 PO (13:36)
[2021-04-30] MEDS ORDERED: VITAMIN C1000 MG PO (13:36)
[2021-04-30] MEDS ORDERED: FREESTYLE TEST1 EACH SUBQ (13:36)
[2021-04-30] MEDS ORDERED: FREESTYLE LANC1 EACH MISCELL (13:36)
[2021-04-30] MEDS ORDERED: PREDNISONE 20 M20 M1 PO (13:36)
[2021-04-30] MEDS ORDERED: IPRAT-ALBUT 0.5-3 ML INH (13:36)
[2021-04-30 14:58] VITALS: BP 110/72
[2021-04-30 15:28] VITALS: BP 110/72
--- NOTE | 2021-04-30 15:44 | NUR ---
CALL FROM [facility]. PT'S TEST STRIPS NOT COVERED BY PLAN WITHOUT PA. PT INDICAATING UNABLE TO COVER COST. CM TO VOUCH FOR TEST STRIPS AT COST OF $150. WITH PLAN FOR PT TO FOLLOW UP WITH PCP DR. JEONG FOR PA FOR FUTURE REFILLS ON TEST STRIPS.
--- NOTE | 2021-04-30 17:51 | NUR ---
PATIENT AMBUALTED IN ROOM. TOLERATED ON 5L. DIABETES DUCATION GIVEN. DC TO HOME WITH 02 AT 1750.
--- NOTE | 2021-05-01 10:59 | NUR ---
TRINITY RECEIVED CALL FROM JESSIKA AT [facility] STATING THAT HOME O2 WAS DELIVERED TO PT LAST EVENING. PT HAD SCRIPT FOR ALBUTEROL BUT DID NOT HAVE A SCRIPT FOR A NEBULIZER. TRINITY FAXED SCRIPT FOR NEBULIZER TO [facility]. JESSIKA STATES THAT NEBULIZER WILL BE DELIVERED TODAY. TRINITY ALSO RECEIVED CALL FROM JEREMIAH Medina AT [facility] REGARDING PT'S DISCHARGE. SW RETURNED CALL AND SPOKE WITH INTAKE. CONFIRMED DME WAS SET UP. NO ADDITIONAL NEEDS IDENTIFIED AT THIS TIME. SW IS AVAILABLE TO ASSIST SHOULD NEEDS ARISE.
== END 2021-04-30 17:55 | disposition home or self-care (01) | DRG 871 ==
LOC: ER 16:16 → EROBS 18:55 → 3W 18:55 → ICU 18:55 → 3W 04-17 17:30 → ICU 04-22 04:59 → 3W 04-28 21:55
PROVIDERS: Internal Medicine; Nurse Practitioner; Nurse Practitioner Family; Pediatrics; Specialist; ADMIT Hospitalist; ATTEND Hospitalist
DX: A41.89 Other specified sepsis (principal); U07.1 COVID-19; J12.82 Pneumonia due to coronavirus disease 2019; N17.0 Acute kidney failure with tubular necrosis; G92.8 Other toxic encephalopathy; J80 Acute respiratory distress syndrome; E87.1 Hypo-osmolality and hyponatremia; Z68.42 Body mass index [BMI] 45.0-49.9, adult; E66.01 Morbid (severe) obesity due to excess calories; E87.6 Hypokalemia; E87.8 Other disorders of electrolyte and fluid balance, not elsewhere classified; E11.65 Type 2 diabetes mellitus with hyperglycemia; R53.81 Other malaise; F10.10 Alcohol abuse, uncomplicated; Z88.1 Allergy status to other antibiotic agents; Z88.2 Allergy status to sulfonamides; Z88.8 Allergy status to other drugs, medicaments and biological substances
CPT/HCPCS: 10078; 10879